=== PATIENT | female | born 1985 | race Two or more races ===

== ENCOUNTER 2017-03-16 09:39 | Emergency (ER) | payer SELFPAY ==
[2017-03-16 09:50] VITALS: BP 112/73; BMI 22.6
--- NOTE | 2017-03-16 10:36 | DR.GENAD ---
HPI - PCP Primary Care Physician: KELLY - HPI Comment HPI Comment: 31 yo c/o L sided pelvic pain/cramps. She denies fever, chills , sweats and diarrhea. She was seen in [place] ~1 month and was transfused 2 units of pRBCs for anemia. Prior to that she had a positive home test. - Complaint/Symptoms Chief Complaint Doctors Comments: "L sided pain" Chief Complaint:: STARTED HURTING IN LOWER ABDOMEN YESTERDAY 03/15/2017. IN THE PELVIC AREA. FAMILY MEMBER STATES SHE HAS NOT HAD PERIOD IN TWO MONTHS. TOOK OTC TEST AND IT WAS POSITIVE. HAS NOT FOLLOWED UP WITH A DOCTOR OR CLININC. SHE WENT TO BATHROOM YESTERDAY AND WHEN SHE WIPED THERE WAS BLOOD ON TOILET DUC Self Treatment fo Chief Complaint: REST AT HOME - Nurses notes reviewed Nurses Notes Review: Yes - Source History Provided: Family Member, Friend - Mode of Arrival Mode of Arrival: Ambulatory - Timing Onset of Chief Complaint: 03/15/17 Came on: Gradually - Duration Duration: Intermittent How lon Duration: Days - Location Location: [facility] - Severity Severity: Moderate PMH - PMH Past Medical History: No Past Surgical History: No - Family History History of Family Medical Conditions: Yes Family Medical History: Diabetes Mellitus - Social History Does patient currently use any type of tobacco product: No Type of Tobacco Use: None Does any household member use tobacco: No Alcohol Use: None Do you use any recreational Drugs:: No Lives With: Spouse, Family Lives Where: Home - infectious screening In the last 2 months have you had wt loss of >10#?: NO Have you had fever, night sweats or hemotysis?: No Have you traveled outside the country in the last 6 months?: No Isolation: Standard ROS - Review of Systems Constitutional: No Symptoms Reported Respiratoy: No Symptoms Reported Cardiovascular: No Symptoms Reported Genitourinary: Pain, Bleeding (pink when wiping) Neurological: No Symptoms Reported Musculoskeletal: No Symptoms Reported Integumentary: No Symptoms Reported Hematologic/Lymphatic: No Symptoms Reported Endocrine: No Symptoms Reported Psychiatric: No Symptoms Reported All Other Systems: Reviewed and Negative PE - Vital Signs Vitals: Temperature 98.6 F Pulse Rate 68 Respiratory Rate 20 Blood Pressure 112/73 O2 Sat by Pulse Oximetry 100 - General Limitations: Language Barrier General Appearance: Alert, In No Apparent Distress - Neck Neck Exam: Normal Inspection, Full ROM, Trachea Midline - Chest Chest Inspection: Normal Inspection, Symmetric Chest Wall Rise - Respiratory Respiratory Exam: Normal Lung Sounds Bilat Respiratory Exam: Bilateral Clear to Auscultation - Cardiovascular Cardiovascular Exam: Regular Rate, Normal Rhythm, Normal Heart Sounds - Abdominal Exam Abdominal Exam: Normal Inspection, Normal Bowel Sounds, Soft Abdominal Tenderness: LLQ - Extremities Extremities Exam: Normal Inspection, Full ROM - Back Back Exam: Normal Inspection, Full ROM - Neurologic Neurological Exam: Alert, Oriented X3, CN II-XII Intact - Psychiatric Psychiatric Exam: Normal Affect, Normal Mood - Skin Skin Exam: Warm, Dry, Intact, Normal Color - Other Exam Other Exam: L sided pelvic TTP. MDM - Differential Diagnosis Differential Diagnosis: tubal , ovarian cyst, lymphadenitis ROR - Labs Reviewed Result Diagrams: 03/16/17 10:52 03/16/17 10:52 Laboratory: WBC 7.6 X10^3/uL (3.6-10.0) 03/16/17 10:52 RBC 4.84 X10^6/uL (3.5-5.4) 03/16/17 10:52 Hgb 12.7 g/dL (12.0-16.0) 03/16/17 10:52 Hct 37.3 % (36.0-47.0) 03/16/17 10:52 MCV 77.1 fL (80.0-100.0) L 03/16/17 10:52 MCH 26.3 pg (27.0-34.0) L 03/16/17 10:52 MCHC 34.0 g/dL (33.0-35.0) 03/16/17 10:52 RDW 24.7 % (11.6-16.5) H 03/16/17 10:52 Plt Count 180 X10^3/uL (150.0-450.0) 03/16/17 10:52 Plt Count Comment Adequate (ADEQUATE) 03/16/17 10:52 MPV 9.0 fL (7.4-11.0) 03/16/17 10:52 Neut % 68.4 % (42.0-75.0) 03/16/17 10:52 Lymph % 20.3 % (21.0-51.0) L 03/16/17 10:52 [place] % 7.1 % (0.0-13.0) 03/16/17 10:52 Eos % 3.4 % (0.9-2.9) H 03/16/17 10:52 Baso % 0.8 % (0.2-1.0) 03/16/17 10:52 Neut # 5.2 x10^3/uL (2.2-4.8) H 03/16/17 10:52 Lymph # 1.5 X10^3/uL (1.3-2.9) 03/16/17 10:52 [place] # 0.5 x10^3/uL (0.3-0.8) 03/16/17 10:52 Eos # 0.3 x10^3/uL (0.0-0.2) H 03/16/17 10:52 Baso # 0.1 X10^3/uL (0.0-0.1) 03/16/17 10:52 Absolute Nucleated RBC 0.0 /100WBC 03/16/17 10:52 Plt Morphology Comment Normal (NORMAL) 03/16/17 10:52 RBC Morphology Abnormal (NORMAL) A 03/16/17 10:52 Anisocytosis 2+ A 03/16/17 10:52 Macrocytosis Slight A 03/16/17 10:52 Sodium 139 mmol/L (136-145) 03/16/17 10:52 Corrected Sodium TNP 03/16/17 10:52 Potassium 3.5 mmol/L (3.5-5.1) 03/16/17 10:52 Chloride 104 mmol/L (98-107) 03/16/17 10:52 Carbon Dioxide 26.9 mmol/L (21-32) 03/16/17 10:52 BUN 10 mg/dL (7-18) 03/16/17 10:52 Creatinine 0.58 mg/dL (0.55-1.02) 03/16/17 10:52 Est GFR (MDRD) Af Amer > 60 (>60) 03/16/17 10:52 Est GFR (MDRD) Non-Af > 60 (>60) 03/16/17 10:52 Glucose 88 mg/dL (65-99) 03/16/17 10:52 Calcium 8.8 mg/dL (8.5-10.1) 03/16/17 10:52 Corrected Calcium TNP 03/16/17 10:52 Total Bilirubin 0.30 mg/dL (0.2-1.0) 03/16/17 10:52 AST 15 Units/L (15-37) 03/16/17 10:52 ALT 17 Units/L (12-78) 03/16/17 10:52 Alkaline Phosphatase 52 Units/L (46-116) 03/16/17 10:52 Total Protein 7.7 g/dL (6.4-8.2) 03/16/17 10:52 Albumin 3.7 g/dL (3.4-5.0) 03/16/17 10:52 Globulin 4.0 g/dL (2.5-4.5) 03/16/17 10:52 Albumin/Globulin Ratio 0.9 Ratio (1.1-2.1) L 03/16/17 10:52 HCG, Qual Cancelled 03/16/17 10:52 HCG, Quant [id number] mIU/mL (0-6) H 03/16/17 10:48 Specimen Type Clean catch urine 03/16/17 10:23 Urine Color Yellow (YELLOW) 03/16/17 10:23 Urine Appearance Clear (CLEAR) 03/16/17 10:23 Urine pH 6.0 (5.0 - 8.0) 03/16/17 10:23 Ur Specific [place] 1.025 (1.000-1.030) 03/16/17 10:23 Urine Protein Negative (NEGATIVE) 03/16/17 10:23 Urine Glucose (UA) Negative (NEGATIVE) 03/16/17 10:23 Urine Ketones Negative (NEGATIVE) 03/16/17 10:23 Urine Occult Blood 2+ (NEGATIVE) 03/16/17 10:23 Urine Nitrite Negative (NEGATIVE) 03/16/17 10:23 Urine Bilirubin Negative (NEGATIVE) 03/16/17 10:23 Urine Urobilinogen Normal (NORMAL) 03/16/17 10:23 Ur Leukocyte Esterase 1+ (NEGATIVE) 03/16/17 10:23 Urine RBC 4-10 /HPF (NEGATIVE) 03/16/17 10:23 Urine WBC 0-4 /HPF (NEGATIVE) 03/16/17 10:23 Ur Squamous Epith Cells Moderate /HPF (NEGATIVE) 03/16/17 10:23 Urine Bacteria 1+ /HPF (NEGATIVE) 03/16/17 10:23 Ur Culture Indicated? No/not indicated 03/16/17 10:23 - XRAY XRAY Interpreted by: Radiologist (IUP, 10 +/- weeks EGA, possible fibroid) - Diagnosis Discharge Problem: and not yet delivered in first trimester, Threatened in early , Vaginal spotting - Discharge Plan Disposition: HOME, SELF-CARE Condition: Stable - Follow ups/Referrals - Instructions Instructions: Vaginal Bleeding During , First Trimester, , Abdominal or Pelvic Ultrasound, Rlut-sm-Dsha
[2017-03-16 10:49] LABS: BILIRUBIN,URINE NEGATIVE (NEGATIVE); BLOOD/HEMOGLOBIN,URINE 2+ (NEGATIVE); GLUCOSE, URINE NEGATIVE (NEGATIVE); KETONES,URINE NEGATIVE (NEGATIVE); LEUKOCYTE ESTERASE ,URINE 1+ (NEGATIVE); NITRITES,URINE NEGATIVE (NEGATIVE); PROTEIN,URINE NEGATIVE (NEGATIVE); UROBILINOGEN,URINE NORMAL (NORMAL)
[2017-03-16 10:57] LABS: APPEARANCE,URINE CLEAR (CLEAR); BACTERIA,URINE 1+ /HPF (NEGATIVE); COLOR,URINE YELLOW (YELLOW); SQUAMOUS EPITHELIAL CELL,UR MODERATE /HPF (NEGATIVE)
[2017-03-16 11:00] LABS: BASOPHILS # (AUTO) 0.1 X10^3/uL (0.0-0.1); BASOPHILS % (AUTO) 0.8 % (0.2-1.0); EOSINOPHILS # (AUTO) 0.3 x10^3/uL (0.0-0.2); EOSINOPHILS % (AUTO) 3.4 % (0.9-2.9); HEMATOCRIT 37.3 % (36.0-47.0); HEMOGLOBIN 12.7 g/dL (12.0-16.0); LYMPHOCYTES # (AUTO) 1.5 X10^3/uL (1.3-2.9); LYMPHOCYTES % (AUTO) 20.3 % (21.0-51.0); MEAN CORPUSCULAR HEMOGLOBIN 26.3 pg (27.0-34.0); MEAN CORPUSCULAR VOLUME 77.1 fL (80.0-100.0); MONOCYTES # (AUTO) 0.5 x10^3/uL (0.3-0.8); MONOCYTES % (AUTO) 7.1 % (0.0-13.0); NEUTROPHILS # (AUTO) 5.2 x10^3/uL (2.2-4.8); NEUTROPHILS % (AUTO) 68.4 % (42.0-75.0); PLATELET COUNT 180 X10^3/uL (150.0-450.0); RED BLOOD COUNT 4.84 X10^6/uL (3.5-5.4); RED CELL DISTRIBUTION WIDTH 24.7 % (11.6-16.5); WHITE BLOOD COUNT 7.6 X10^3/uL (3.6-10.0)
[2017-03-16 11:10] LABS: PLATELET MORPHOLOGY COMMENT NORMAL (NORMAL)
[2017-03-16 11:11] LABS: ALANINE AMINOTRANSFERASE 17 Units/L (12-78); ALBUMIN 3.7 g/dL (3.4-5.0); ALKALINE PHOSPHATASE 52 Units/L (46-116); ANISOCYTOSIS 2+; ASPARTATE AMINO TRANSFERASE 15 Units/L (15-37); BLOOD UREA NITROGEN 10 mg/dL (7-18); CALCIUM 8.8 mg/dL (8.5-10.1); CARBON DIOXIDE 26.9 mmol/L (21-32); CHLORIDE 104 mmol/L (98-107); CREATININE 0.58 mg/dL (0.55-1.02); GLUCOSE 88 mg/dL (65-99); SODIUM 139 mmol/L (136-145); TOTAL PROTEIN 7.7 g/dL (6.4-8.2); eGFR BLACK RACES > 60 (>60); eGFR NON BLACK RACES > 60 (>60)
--- NOTE | 2017-03-16 12:51 | US ---
HISTORY: , left pelvic pain, bleeding Study: Early OB sonogram Comparison: None Technique: Multiple grayscale sonographic images were obtained transvaginally. Findings: Within the uterus there is a well-defined gestational sac containing a yolk sac and a pole. Sa c measurement 49.7 millimeters corresponding to 10 weeks 5 days. [place]-rump length 25.2 millimeters corresponding to 9 weeks 2 days. heart rate 169 beats per minute. There is a prominent area of the myometrium measuring 5.3 x 4 centimeter anteriorly. This could simply represent a contraction o r less likely but not impossible represent a fibroid. Follow up examination will be diagnostic. The ovaries were not visualized. No free fluid is noted in the cul de sac. No adnexal masses are identif ied. IMPRESSION: Single viable intrauterine gestation 10 weeks +/-1 week gestational age with an estimated date of de livery October 12, 2017 Prominent anterior myometrium possibly representing a contraction although fibroid could not be enti rely excluded. Follow up examination should be diagnostic. Reported By:
[2017-03-16] MEDS ORDERED: TYLENOL 325 MG TAB PO ONE ×2 (12:58→13:03)
== END 2017-03-16 13:13 | disposition home or self-care (01) ==
LOC: ER 10:04
DX: O20.0 Threatened abortion (principal); O26.851 Spotting complicating pregnancy, first trimester; Z3A.10 10 weeks gestation of pregnancy
CPT/HCPCS: 36415; 76801; 80053; 81001; 84702; 85025; 99283; 99284

== ENCOUNTER 2020-12-18 15:54 | Inpatient (IN) ==
[2020-12-18] MEDS ORDERED: PITOCIN IVP ONE (16:01)
[2020-12-18] MEDS ORDERED: PHENERGAN INJ 25 MG IM PRN ×2 (16:01→21:08)
[2020-12-18] MEDS ORDERED: REGLAN INJ 10 MG VIAL IVP PRN (16:01)
[2020-12-18] MEDS ORDERED: D5LR 1L W PITOCIN 10 UNITS/L 10 UNITS/1,000 ML BAG IV PRN (16:01)
[2020-12-18] MEDS ORDERED: BETADINE SOLN ONE (16:10)
[2020-12-18] MEDS ORDERED: D5 1/2 NS 1L W PITOCIN 20 UNITS/L 20 UNITS/1,000 ML BAG IV ONE (16:11)
[2020-12-18] MEDS ORDERED: AMPICILLIN VIAL 2 GRAM ONE (16:12)
[2020-12-18] MEDS ORDERED: NS 100 ML IV 100 ML IV ONE ×2 (16:12→19:41)
[2020-12-18 16:19] LABS: BILIRUBIN,URINE NEGATIVE (NEGATIVE); BLOOD/HEMOGLOBIN,URINE 4+ (NEGATIVE); GLUCOSE, URINE NEGATIVE (NEGATIVE); KETONES,URINE NEGATIVE (NEGATIVE); LEUKOCYTE ESTERASE ,URINE 3+ (NEGATIVE); NITRITES,URINE NEGATIVE (NEGATIVE); PROTEIN,URINE 2+ (NEGATIVE); UROBILINOGEN,URINE 2+ (NORMAL)
[2020-12-18 16:20] LABS: APPEARANCE,URINE HAZY (CLEAR); COLOR,URINE YELLOW (YELLOW)
[2020-12-18 16:23] LABS: BASOPHILS # (AUTO) 0.1 X10^3/uL (0.0-0.1); EOSINOPHILS # (AUTO) 0.2 x10^3/uL (0.0-0.2); EOSINOPHILS % (AUTO) 2.2 % (0.9-2.9); HEMATOCRIT 27.3 % (36.0-47.0); HEMOGLOBIN 8.4 g/dL (12.0-16.0); LYMPHOCYTES # (AUTO) 1.7 X10^3/uL (1.3-2.9); LYMPHOCYTES % (AUTO) 17.9 % (21.0-51.0); MEAN CORPUSCULAR HEMOGLOBIN 18.9 pg (27.0-34.0); MEAN CORPUSCULAR HGB CONC 30.9 g/dL (33.0-35.0); MEAN CORPUSCULAR VOLUME 61.4 fL (80.0-100.0); MEAN PLATELET VOLUME 9.6 fL (7.4-11.0); MONOCYTES # (AUTO) 0.6 x10^3/uL (0.3-0.8); MONOCYTES % (AUTO) 6.2 % (0.0-13.0); NEUTROPHILS % (AUTO) 72.7 % (42.0-75.0); PLATELET COUNT 195 X10^3/uL (150.0-450.0); RED BLOOD COUNT 4.45 X10^6/uL (3.5-5.4); RED CELL DISTRIBUTION WIDTH 21.6 % (11.6-16.5); WHITE BLOOD COUNT 9.6 X10^3/uL (3.6-10.0)
[2020-12-18 16:32] LABS: BLOOD UREA NITROGEN 10 mg/dL (7-18); CALCIUM 8.2 mg/dL (8.5-10.1); CARBON DIOXIDE 20.7 mmol/L (21-32); CHLORIDE 105 mmol/L (98-107); CREATININE 0.74 mg/dL (0.55-1.02); SODIUM 137 mmol/L (136-145); eGFR NON BLACK RACES > 60 (>60)
[2020-12-18 16:33] LABS: AMORPHOUS SEDIMENT,UR TRACE /HPF (NEGATIVE); BACTERIA,URINE 2+ /HPF (NEGATIVE); HYALINE CASTS, URINE FEW /LPF (NEGATIVE); MUCUS,URINE MODERATE /HPF (NEGATIVE); SQUAMOUS EPITHELIAL CELL,UR MANY /HPF (NEGATIVE)
[2020-12-18 16:34] LABS: AMNISURE ROM TEST THERE IS A RUPTURE (NO RUPTURE); YEAST,URINE FEW /HPF (NEGATIVE)
[2020-12-18 16:50] LABS: ANISOCYTOSIS 1+; HYPOCHROMASIA 2+; MICROCYTOSIS 2+; PLATELET MORPHOLOGY COMMENT NORMAL (NORMAL)
[2020-12-18] MEDS ORDERED: D5 1/2 NS 1000 ML 1,000 ML IV SCH (17:00)
[2020-12-18] MEDS ORDERED: AMPICILLIN VIAL 2 GRAM 2 G in NS 100 ML IV + SPIKE MINIBAG* 100 ML IV SCH (17:00)
[2020-12-18] MEDS ORDERED: STADOL INJ ONE ×2 (18:40→20:47)
[2020-12-18] MEDS: STADOL INJ IVP PRN ×2 (18:40→20:47)
[2020-12-18] MEDS ORDERED: AMPICILLIN VIAL 1 GRAM ONE (19:41)
[2020-12-18] MEDS ORDERED: AMPICILLIN VIAL 1 GRAM 1 G in NS 50 ML IV + SPIKE MINIBAG* 50 ML IV SCH (20:03)
[2020-12-18] MEDS ORDERED: MOTRIN TAB 800 MG PO PRN (21:08)
[2020-12-18] MEDS: D5 1/2 NS 1000 ML 1,000 ML with PITOCIN 20 UNITS IV SCH ×2 (21:30)
[2020-12-18] MEDS ORDERED: AMBIEN PO PRN (21:40)
[2020-12-18] MEDS ORDERED: MILK OF MAGNESIA PO PRN (21:40)
[2020-12-18] MEDS ORDERED: ADACEL or BOOSTRIX TDaP VACCINE IM ONE (21:40)
[2020-12-18] MEDS ORDERED: DERMOPLAST PAIN RELIEF SPRAY TOP PRN (21:40)
[2020-12-18] MEDS: MOTRIN TAB 800 MG PO PRN (22:10)
[2020-12-19] MEDS: D5 1/2 NS 1000 ML 1,000 ML with PITOCIN 20 UNITS IV SCH ×6 (06:00→21:59)
[2020-12-19] MEDS: MOTRIN TAB 800 MG PO PRN ×3 (06:01→22:45)
[2020-12-19 06:34] LABS: HEMATOCRIT 27.6 % (36.0-47.0); HEMOGLOBIN 8.2 g/dL (12.0-16.0)
[2020-12-19] MEDS: PRENATAL PLUS PO SCH (09:11)
[2020-12-19] MEDS ORDERED: INFeD or DEXFERRUM 25 MG in NS 100 ML IV 100 ML IV ONE (10:00)
[2020-12-19] MEDS ORDERED: INFeD or DEXFERRUM 975 MG in NS 500 ML IV 500 ML IV NR (11:30)
[2020-12-20] MEDS: MOTRIN TAB 800 MG PO PRN (06:19)
[2020-12-20 08:30] VITALS: BP 137/83
[2020-12-20] MEDS: PRENATAL PLUS PO SCH (09:40)
[2020-12-20] MEDS ORDERED: ADACEL or BOOSTRIX TDaP VACCINE IM ONE (11:30)
== END 2020-12-20 11:43 | disposition home or self-care (01) | DRG 807 ==
LOC: LD 15:54 → MED/SURG 22:19
PROVIDERS: ADMIT Obstetrics & Gynecology Obstetrics; ATTEND Obstetrics & Gynecology Obstetrics
DX: B95.1 Streptococcus, group B, as the cause of diseases classified elsewhere; O99.891 Other specified diseases and conditions complicating pregnancy; Z37.0 Single live birth; Z20.822 Contact with and (suspected) exposure to COVID-19; O99.824 Streptococcus B carrier state complicating childbirth; O75.89 Other specified complications of labor and delivery; Z23 Encounter for immunization